=== PATIENT | female | born 1990 | race Caucasian/White ===

== ENCOUNTER 2017-10-12 09:49 | Inpatient (IN) ==
[2017-10-12] MEDS ORDERED: OXYTOCIN/DEXTROSE 5%-WATER 30 UNITS/500 ML BAG IV ONE ×2 (10:17→23:20)
[2017-10-12] MEDS ORDERED: DEXTROSE 5%-LACTATED RINGERS 1,000 ML IV PRN (10:17)
[2017-10-12] MEDS ORDERED: RINGER'S SOLUTION,LACTATED 1,000 ML IV ONE (10:17)
[2017-10-12] MEDS ORDERED: ONDANSETRON HCL/PF 2 MG/ML VIAL IV PRN ×2 (10:17→19:49)
[2017-10-12] MEDS ORDERED: INSULIN REGULAR HUMAN REC 100 UNITS in NORMAL SALINE 100 ML IV PRN (10:17)
[2017-10-12 10:35] LABS: Hematocrit 32.1 % (37.0-47.0); Hemoglobin 10.5 gm/dL (12.5-16.0); Mean Cell Volume 84.3 fl (78-100); Mean Corpuscular Hemoglobin 27.6 pg (27-31); Mean Corpuscular Hgb Conc 32.7 g/dl (32-36); Mean Platelet Volume 11.8 fl (6.0-9.5); Neutrophil # 6.7 K/mm3 (1.3-6.0); Neutrophil % 72.8 % (42-75.0); Platelet Count 155 K/mm3 (150-450); Red Blood Count 3.81 M/mm3 (4.2-5.4); Red Cell Distribution Width 14.8 % (11.5-14.0); White Blood Count 9.2 K/mm3 (4.0-10.5)
[2017-10-12 10:50] LABS: Albumin * 2.5 gm/dl (3.4-5.0); Anion Gap 14.6 mmol/L (6.8-13.8); BUN/Creatinine Ratio 15.1 (9.0-21.6); Bilirubin, Total 0.8 mg/dL (0.0-1.1); Ca. Corrected For Albumin 9.5 mg/dL (8.4-10.2); Calcium * 8.6 mg/dL (7.9-10.9); Carbon Dioxide 23.3 mmol/L (24-32.6); Potassium 3.9 mmol/L (3.4-4.6); Total Protein 6.7 gm/dL (6.2-8.2)
[2017-10-12] MEDS ORDERED: NALOXONE HCL 1 MG/1 ML SYRG IV PRN (19:49)
[2017-10-12] MEDS ORDERED: BUPIVACAINE HCL/0.9 % NACL/PF 250 ML EP PRN (19:49)
[2017-10-12] MEDS ORDERED: fentaNYL CITRATE/PF 50 MCG/ML AMPUL IT SCH (20:00)
--- NOTE | 2017-10-12 20:19 | OR ---
Anesthesia Pre Procedure Eval Date of Service: 10/12/17 Pre Procedure Evaluation: Anesthesia Pre Procedure Evaluation Heart Rate: 74 Blood Pressure: 127/68 Temperature: 36.7C Respiratory Rate: 18 SaO2: 99 DATE: 10/12/2017 TIME: 2014 INDICATIONS: Active labor, labor pain PAST MEDICAL HISTORY: Multipara patient in active labor requesting labor analgesia History of GERD: No History of smoking:No History of sleep apnea:No EXAM: Heart regular; lungs clear ASSESSMENT OF MEDICAL STATUS: Appropriate candidate for labor analgesia PLANNED PROCEDURE: Combination spinal epidural for labor analgesia Home Medications: HOME MEDICATIONS Ferrous Sulfate [Iron] 325 mg PO DAILY 09/03/15 [Last Taken 10/12/17 06:00] Levothyroxine Sodium [Synthroid] 25 mcg PO DAILY 10/01/17 [Last Taken 10/12/17 06:00] Levothyroxine Sodium [Synthroid] 200 mcg PO DAILY 10/01/17 [Last Taken 10/12/17 06:00] Insulin NPH Human Isophane [Humulin N] 40 units IJ 179910/12/17 [Last Taken 18:00] Insulin NPH Human Isophane [Humulin N] [place] [address]10/12/17 [Last Taken 06:00] Insulin Regular, Human [Humulin R] 16 [place] IJ 599[address]/12/17 [Last Taken 06:00] Insulin Regular, Human [Humulin R] 20 units IJ 179910/12/17 [Last Taken 18:00] Vits96/Iron Fum/Folic [ S] 1 tab PO DAILY 10/12/17 [Last Taken 10/12/17 06:00]
--- NOTE | 2017-10-12 20:47 | OR ---
Anesthesia Procedure Note - Anesthesia Procedure Note Date of Service: 10/12/17 Narrative: 10/12/17 20:45 ANESTHESIA PROCEDURE NOTE Date of Procedure: 10/12/2017 Time of procedure: 2014. Performed by: KARLY Andersen CRNA, MSN Production Team Manager: Prerna Avila RN. Preprocedure diagnosis: Active labor, labor pain. Post procedure diagnosis: Same. Procedure:Epidural for labor analgesia L4 5. Indications: Labor pain. Findings: See below. Details of the procedure: The patient was placed on the side of the bed in sitting positionand prepped with DuraPrep then draped in a sterile fashion. Lidocaine 1% was infiltrated to the skin and subcutaneous tissues at the level of the L4 5 interspace. An 18-gauge Touhy needle was used to approach the epidural space with loss of resistance technique. Once loss of resistance was achieved a 27-gauge spinal needle was passed through the epidural needle and CSF was contacted. After CSF returned, 20 mcg of fentanyl was injected in the spinal needle was removed the epidural catheter was then threaded approximately 4 cm in the epidural needle was removed. The catheter was taped in place and after careful aspiration 3 mL of 1.5% lidocaine with 1-200,000 epinephrine was injected without change in maternal heart rate or sensorium. . EBL: Minimal. Fluids: N/A. Specimen: N/A. Post procedure condition: The patient tolerated the procedure well with good relief. No complications were noted. Thank you for this consultation. Zane Dangelo CRNA, ARNP, MSN 10/12/17 20:46
--- NOTE | 2017-10-12 22:24 | PN ---
Progess Note - Interim Date: 10/12/17 Time: 22:16 Narrative: 10/12/17 22:16 Subjective-patient is comfortable after epidural. I was called in to rupture and place internal monitors due to inability to get heart tones after epidural. Objective- SVE- 7/70/-3, cephalic but ballotable confirmed by ultrasound, hand palpated as presenting part without obvious cord. US was performed and confirmed hand to be in front of head without any cord noted. I discussed concern for cord prolapse but the need to monitor baby. Pt and her stated understanding. Harris catheter was then placed. US again used to find heart tones and then we were able to get the baby on the monitor. I then again checked her and spontaneous rupture of membranes during examination with clear fluid, hand was gently pushed anteriorly and was retracted with head settling into the pelvis, no cord was palpated FHTs- 135s, mod gracia, early and variable decels [place]-every 2 minutes on Pitocin Assessment and plan- Labor-induction with Pitocin GBS neg GHTN-asymptomatic, BPs mostly WNL, cont. to monitor GDM-BS was 60's and pt feeling lightheaded, fluids changed to d5LR, cont. to monitor and start insulin drip prn
--- NOTE | 2017-10-12 23:18 | OR ---
Operative Report - Dictated Report Narrative: Spontaneous Vaginal Delivery Viable female with APGARS of 9 at 1 minute and 9 at 5 minutes . she delivered at 2301 over 3 contractions. Presentation was ION with a right presenting hand. She had a persistent hand that was presented on top of the baby's head. This would be reduced to the side but between contractions come back over the baby's head. With pushing the hand persisted but did not come down further. There was adequate room with a history of a 10 pound baby and this baby felt approximately 6-7 pounds. I discussed with her the risks of possible trauma to the hand and offered section. I did not feel strongly about a section due to how the hand was placed over the head and her ability to push and deliver over a few contractions as to not put prolonged strain onto the baby's hand. Patient agreed and pushed baby out over 3 contractions. Weight: 3052 grams Placenta was delivered spontaneously and intact. First-degree vaginal laceration was noted and hemostatic without repair. Estimated blood loss: 100 ml Mother and baby tolerated delivery well. Baby's right hand was noted to be bruised in the middle, ring, and pinky finger with a small amount on the baby's palm. The baby was moving the arm hand and fingers without difficulty. There did not appear to be any deformities. History for MU Definition: * The number of deliveries resulting in a live the patient experienced prior to current hospitalization * The previous delivery of live twins or any live multiple gestation is considered one live event. *If primagravida or nulliparous is documented select zero for the number of previous live births. Live Events: 2
[2017-10-12] MEDS ORDERED: oxyCODONE HCL/ACETAMINOPHEN 1 TAB TABLET PO PRN ×2 (23:20)
[2017-10-12] MEDS ORDERED: BISACODYL 10 MG SUPP.RECT RC PRN (23:20)
[2017-10-12] MEDS ORDERED: HYDROCORTISONE 30 APPL TUBE TP PRN (23:20)
[2017-10-12] MEDS ORDERED: GLYCERIN/WITCH HAZEL LEAF 40 APPL BOX TP PRN (23:20)
[2017-10-12] MEDS ORDERED: BENZOCAINE/MENTHOL 81 SPRAY CAN TP PRN (23:20)
[2017-10-12] MEDS ORDERED: SENNOSIDES 8.6 MG TABLET PO PRN (23:20)
[2017-10-13] MEDS: IBUPROFEN 800 MG TABLET PO PRN ×3 (01:07→16:56)
[2017-10-13] MEDS: DOCUSATE SODIUM 100 MG CAPSULE PO SCH (08:51)
[2017-10-14] MEDS ORDERED: LEVOTHYROXINE SODIUM 125 MCG TABLET PO SCH (07:00)
[2017-10-14] MEDS ORDERED: LEVOTHYROXINE SODIUM 100 MCG TABLET PO SCH (07:00)
[2017-10-14 08:22] VITALS: BP 127/83
--- NOTE | 2017-10-14 08:24 | PN ---
Subjective - Date and Time Seen Date: 10/14/17 Time: 08:23 Objective - Vitals Vitals: Last Vital Signs Temp 36.1 C L 10/14/17 06:45 Pulse 87 10/14/17 06:45 Resp 18 10/14/17 06:45 BP 127/83 10/14/17 06:45 Pulse Ox 98 10/14/17 06:45 Patient denies complaints. Lochia wnl Abdomen - soft, nontender Uterus - firm, at umbilicus - 2 No calf tenderness Impression: day #2 - s/p spontaneous vaginal delivery. Gestational diabetes-resolved Plan: Routine discharge instructions. Check blood sugars the day prior to visit. Continue with home modified diabetic diet, exercise, and weight loss.
--- NOTE | 2017-10-14 08:25 | PN ---
Subjective - Date and Time Seen Date: 10/14/17 Time: 08:24 - LATE NOTE. SEEN yesterday am Objective - Vitals Vitals: Last Vital Signs Temp 36.1 C L 10/14/17 06:45 Pulse 87 10/14/17 06:45 Resp 18 10/14/17 06:45 BP 127/83 10/14/17 06:45 Pulse Ox 98 10/14/17 06:45 Patient denies complaints. Breast-feeding well Fasting and one-hour postprandial blood sugars within normal limits. Lochia wnl Abdomen - soft, nontender Uterus - firm, at umbilicus - 1 No calf tenderness Impression: day #1 - s/p spontaneous vaginal delivery. Gestational diabetes-resolved Plan: Continue routine care.
[2017-10-14] MEDS ORDERED: FERROUS SULFATE 325 MG TABLET PO SCH (09:00)
[2017-10-14] MEDS ORDERED: PRENATAL VITS96/IRON FUM/FOLIC 1 TAB TABLET PO SCH (09:00)
[2017-10-14] MEDS: DOCUSATE SODIUM 100 MG CAPSULE PO SCH (09:14)
== END 2017-10-14 11:30 | disposition home or self-care (01) | DRG 775 ==
LOC: OB 09:49 → MS 10-13 14:12
PROVIDERS: ADMIT Obstetrics & Gynecology; ATTEND Obstetrics & Gynecology
DX: O99.284 Endocrine, nutritional and metabolic diseases complicating childbirth; E03.9 Hypothyroidism, unspecified; O70.0 First degree perineal laceration during delivery; Z3A.38 38 weeks gestation of pregnancy; Z37.0 Single live birth; Z87.59 Personal history of other complications of pregnancy, childbirth and the puerperium; O99.12 Other diseases of the blood and blood-forming organs and certain disorders involving the immune mechanism complicating childbirth; F41.1 Generalized anxiety disorder; J45.20 Mild intermittent asthma, uncomplicated; O24.424 Gestational diabetes mellitus in childbirth, insulin controlled; O13.4 Gestational [pregnancy-induced] hypertension without significant proteinuria, complicating childbirth
CPT/HCPCS: 36415; 59025; 80053; 85025